=== PATIENT | female | born 1975 | race Caucasian/White ===

== ENCOUNTER → 2018-05-29 | Outpatient (CLI) | payer OTHER ==
--- NOTE | 2018-05-29 15:10 | RAD ---
DATE: 05/29/2018 EXAM: DIGITAL DIAGNOSTIC BILATERAL, right breast ultrasound HISTORY: Bilateral breast pain, intermittent bilateral breast discharge, right breast lump COMPARISON: 04/16/2013 This study was interpreted with the benefit of Computerized Aided Detection (CAD). Breast Density: HETERO The breast parenchyma is heterogenously dense, which could reduce sensitivity of mammography. Breast parenchyma level C. FINDINGS: A BB was placed over the area of palpable concern laterally on the right. The fibroglandular tissues are dense and heterogeneous. No new or enlarging breast densities is seen. No suspicious microcalcifications are evident. Right breast ultrasound, 05/29/2018: A targeted ultrasound exam was performed of the upper outer quadrant, including the area of reported palpable concern at the 9:30 location. Heterogeneous fibroglandular shadows are present. No mass or abnormal fluid collection is seen. IMPRESSION: 1. Stable mammograms without evidence of malignancy. 2. The targeted ultrasound exam of the upper outer quadrant of the right breast reveals no abnormality. 3. Bilateral breast discharge is most commonly due to systemic factors. If a suspicious breast discharge persists, galactography could be considered for further evaluation. BI-RADS CATEGORY: 1 NEGATIVE RECOMMENDED FOLLOW-UP: 12M 12 MONTH FOLLOW-UP PQRS compliance statement: Patient information was entered into a reminder system with a target due date for the next mammogram. Mammography is a sensitive method for finding small breast cancers, but it does not detect them all and is not a substitute for careful clinical examination. A negative mammogram does not negate a clinically suspicious finding and should not result in delay in biopsying a clinically suspicious abnormality. "Our facility is accredited by the [employer] Mammography Program."
== END | disposition home or self-care (01) ==
LOC: MAMMO 13:41
PROVIDERS: ATTEND Nurse Practitioner Family
DX: N64.52 Nipple discharge (principal); N64.4 Mastodynia
CPT/HCPCS: 76641; 77066